=== PATIENT | male | born 1960 | race Caucasian/White ===

== ENCOUNTER 2021-08-29 13:42 | Emergency (ER) | payer OTHER, SELFPAY ==
[2021-08-29] VITALS (10 sets, daily range): BP systolic 125–148; BP diastolic 62–79; PULSE 84–104; RESP 16–23; TEMP 36.2; O2SAT 92–95
--- NOTE | 2021-08-29 13:53 | DI.RAD.S_ITS ---
PROCEDURE: XR CHEST 1V INDICATIONS: suspected sepsis TECHNIQUE: One view of the chest was acquired. COMPARISON: None. FINDINGS: Surgical changes and devices: None. Lungs and pleura: Lungs are clear. No pleural effusions or pneumothorax. Mediastinum: Mediastinal contours appear normal. Heart size is normal. Bones and chest wall: No suspicious bony lesions. Overlying soft tissues appear unremarkable. IMPRESSION: No acute process. Dictated by: Allison Bain M.D. on 08/29/2021 at 14:19 Approved by: Allison Bain M.D. on 08/29/2021 at 14:19
[2021-08-29] MEDS: SODIUM CHLORIDE 0.9% 1,000 ML 1000 ML IV (14:21)
[2021-08-29 14:26] LABS: Add Manual Diff / Slide Review NO; Basophils Absolute Auto 0 /uL (0-100); Basophils Percent Auto 0.3 % (0-2); Eosinophils Absolute Auto 100 /uL (0-450); Hematocrit 43.1 % (41-53); Hemoglobin 14.7 g/dL (13.5-17.5); Lymphocytes Absolute Auto 400 /uL (1100-4500); Lymphocytes Percent Auto 7.7 % (25-40); Mean Corpuscular HGB Conc 34.1 % (30-36); Monocytes Absolute Auto 300 /uL (0-900); Neutrophils Absolute Auto 4800 /uL (1500-7000); Platelet Count 111 X10^3/uL (150-400); Red Blood Cell Count 4.89 X10^6/uL (4.5-5.9); Red Cell Distribution Width 13.7 % (11.6-14.8); White Blood Cell Count 5.6 X10^3/uL (4.5-11.0)
[2021-08-29 14:27] LABS: Alanine Aminotransferase 58 IU/L (<50); Albumin 4.6 g/dL (3.5-5.0); Albumin Globulin Ratio 1.4 (1.0-2.8); Alkaline Phosphatase 35 U/L (38-126); Aspartate Aminotransferase 52 IU/L (17-59); BUN Creatinine Ratio 15.7 (6-22); Bilirubin Total 0.8 mg/dL (0.2-1.3); Blood Urea Nitrogen 16 mg/dL (9-20); Calcium 8.7 mg/dL (8.4-10.2); Carbon Dioxide 22 mmol/L (22-32); Chloride 106 mmol/L (98-107); Estimated Glomerular Filt Rate > 60 mL/min (>60); Globulin 3.4 g/dL (1.7-4.1); Glucose 121 mg/dL (70-100); HEMOLYSIS < 15 (0-50); Lipase 328 U/L (23-300); Potassium 3.6 mmol/L (3.4-5.1); Sodium 140 mmol/L (137-145)
[2021-08-29 14:28] LABS: Lactate (Lactic Acid) 1.4 mmol/L (0.7-2.1)
[2021-08-29 14:44] LABS: Procalcitonin 0.23 ng/mL (<0.5)
--- NOTE | 2021-08-29 15:18 | ED.NAVMDI ---
HPI - Nausea/Vomiting/Diarrhea General Chief complaint: Nausea/Vomiting/Diarrhea Stated complaint: N/V/D, body aches since last night Time Seen by Provider: 08/29/21 14:28 Source: patient Mode of arrival: Ambulatory History of Present Illness HPI Narrative: Patient is a 60-year-old male. Has a history of HIV. His on antiretrovirals for this. He states that his viral load is 0 and his last CD4 count was greater than 500. He is here for evaluation of just under 24 hours of nausea vomiting diarrhea body aches. Patient states he did attend a birthday libertarian last evening and did have food and drinks there however there other people that ate the same things and no one else seems to be ill. He does have some lower abdominal tenderness. Also has a headache. No blood in his stool. No rashes. No chest pain. No shortness of breath Related Data Previous Rx's Medication Instructions Recorded ondansetron 4 mg disintegrating 4 mg PO Q6H PRN #14 tab 08/29/21 tablet Allergies Allergy/AdvReac Type Severity Reaction Status Date / Time No Known Drug Allergies Allergy Verified 08/29/21 13:51 Review of Systems Constitutional Constitutional: Reports as per HPI and Reports system reviewed and no additional complaints, except as documented Cardiovascular Cardiovascular: Reports as per HPI and Reports system reviewed and no additional complaints, except as documented Respiratory Respiratory: Reports as per HPI and Reports system reviewed and no additional complaints, except as documented Gastrointestinal Gastrointestinal: Reports as per HPI and Reports system reviewed and no additional complaints, except as documented Genitourinary Genitourinary: Reports system reviewed and no additional complaints, except as documented and Reports as per HPI Musculoskeletal Musculoskeletal: Reports system reviewed and no additional complaints, except as documented Integumentary/Breasts Skin/Breast: Reports system reviewed and no additional complaints, except as documented Neurologic Neurologic: Reports system reviewed and no additional complaints, except as documented Hematologic/Lymphatic Hematologic/Lymphatic: Reports system reviewed and no additional complaints, except as documented Patient History Medical History HIV (human immunodeficiency virus infection) Social History Smoking Status: Never smoker Smoking Status: Never smoker alcohol intake frequency: 0-2 drinks per day Exam Initial Vital Signs Initial Vital Signs: Vital Signs Temperature 97.2 F L 08/29/21 13:48 Pulse Rate 104 H 08/29/21 13:48 Respiratory Rate 22 08/29/21 13:48 Blood Pressure 148/68 H 08/29/21 13:48 Pulse Oximetry 95 08/29/21 13:48 HENMT Head: normal to inspection and normocephalic Resp Effort & Inspection: normal respiratory effort Auscultation: clear to auscultation bilaterally Cardio Rate: regular rate Rhythm: regular rhythm GI Inspection: normal to inspection Palpation: soft and No tender Skin General: no rashes or lesions noted Neuro General: patient alert, patient awake and moves all extremities Extrem General: normal to inspection and capillary refill normal Psych Appearance: grossly normal and well kempt Course Orders Ordered: ED Orders 08/29/21 13:53 XR chest 1V Stat RT Consult Eval and Treat NOW 08/29/21 14:05 Complete Blood Count AUTO DIFF Stat Comprehensive Metabolic Panel Stat Lactate (Lactic Acid) Stat Lipase Stat Procalcitonin Stat 08/29/21 14:14 COVID19 -Nasal RAPID/Pre-Proc Stat 08/29/21 14:24 Blood Culture Stat 08/29/21 15:22 Ictotest Urine Stat Urine Microscopic Stat Discontinued Medications Sodium Chloride (Normal Saline 0.9%) 1,000 mls @ 1,000 mls/hr IV BOLUS ONE Stop: 08/29/21 14:52 Last Infusion: 08/29/21 15:58 Dose: 0 mls/hr Documented by: Admin: 08/29/21 14:21 Dose: 1,000 mls/hr Documented by: CONOR Vital Signs Vital signs: Vital Signs - 8 hr 08/29/21 13:48 08/29/21 13:56 08/29/21 14:00 Temperature 97.2 F L Pulse Rate 104 H 101 H 97 H Respiratory Rate 22 22 Blood Pressure 148/68 H 148/68 H Pulse Oximetry 95 94 95 08/29/21 14:30 08/29/21 14:31 08/29/21 15:00 Temperature Pulse Rate 96 H 96 H 96 H Respiratory Rate 21 21 23 Blood Pressure 147/66 H 147/65 H 141/79 H Pulse Oximetry 92 92 93 08/29/21 15:30 08/29/21 16:00 08/29/21 16:30 Temperature Pulse Rate 86 85 84 Respiratory Rate 18 Blood Pressure 131/62 125/70 130/77 Pulse Oximetry 92 92 93 08/29/21 17:00 Temperature Pulse Rate 84 Respiratory Rate 16 Blood Pressure 131/65 Pulse Oximetry 93 MDM - Nausea/Vomiting/Diarrhea Lab Data Result diagrams: 08/29/21 14:05 08/29/21 14:05 Labs: Lab Results 08/29/21 08/29/21 08/29/21 Range/Units 14:05 14:05 14:05 WBC 5.6 (4.5-11.0) X10^3/uL RBC 4.89 (4.5-5.9) X10^6/uL Hgb 14.7 (13.5-17.5) g/dL Hct 43.1 (41-53) % MCV 88.0 (80-100) fL MCH 30.0 (26-34) PG MCHC 34.1 (30-36) % RDW 13.7 (11.6-14.8) % Plt Count 111 L (150-400) X10^3/uL Neut % (Auto) 85.0 H (50-75) % Lymph % (Auto) 7.7 L (25-40) % [place] % (Auto) 6.0 (3-14) % Eos % (Auto) 1.0 L (2-4) % Baso % (Auto) 0.3 (0-2) % Neut # (Auto) 4800 (4547-1306) /uL Lymph # (Auto) 400 L (8070-7390) /uL [place] # (Auto) 300 (0-900) /uL Eos # (Auto) 100 (0-450) /uL Baso # (Auto) 0 (0-100) /uL Sodium 140 (137-145) mmol/L Potassium 3.6 (3.4-5.1) mmol/L Chloride 106 (98-107) mmol/L Carbon Dioxide 22 (22-32) mmol/L BUN 16 (9-20) mg/dL Creatinine 1.02 (0.66-1.25) mg/dL Estimated GFR > 60 (>60) mL/min BUN/Creatinine Ratio 15.7 (6-22) Glucose 121 H (70-100) mg/dL Lactate 1.4 (0.7-2.1) mmol/L Calcium 8.7 (8.4-10.2) mg/dL Total Bilirubin 0.8 (0.2-1.3) mg/dL AST 52 (17-59) IU/L ALT 58 H (<50) IU/L Alkaline Phosphatase 35 L (38-126) U/L Total Protein 8.0 (6.3-8.2) g/dL Albumin 4.6 (3.5-5.0) g/dL Globulin 3.4 (1.7-4.1) g/dL Albumin/Globulin Ratio 1.4 (1.0-2.8) Lipase 328 H (23-300) U/L Procalcitonin 0.23 (<0.5) ng/mL Ur Bilirubin Confirm (Negative) Urine RBC (0-5/HPF) Urine WBC (0-5/HPF) Ur Squamous Epith Cells (0-5/HPF) Urine Bacteria (None) Urine Mucus (Negative) Ur Culture Indicated? SARS-CoV-2 (PCR) (Negative) 08/29/21 08/29/21 08/29/21 Range/Units 14:14 15:22 15:22 WBC (4.5-11.0) X10^3/uL RBC (4.5-5.9) X10^6/uL Hgb (13.5-17.5) g/dL Hct (41-53) % MCV (80-100) fL MCH (26-34) PG MCHC (30-36) % RDW (11.6-14.8) % Plt Count (150-400) X10^3/uL Neut % (Auto) (50-75) % Lymph % (Auto) (25-40) % [place] % (Auto) (3-14) % Eos % (Auto) (2-4) % Baso % (Auto) (0-2) % Neut # (Auto) (4714-7648) /uL Lymph # (Auto) (1606-1589) /uL [place] # (Auto) (0-900) /uL Eos # (Auto) (0-450) /uL Baso # (Auto) (0-100) /uL Sodium (137-145) mmol/L Potassium (3.4-5.1) mmol/L Chloride (98-107) mmol/L Carbon Dioxide (22-32) mmol/L BUN (9-20) mg/dL Creatinine (0.66-1.25) mg/dL Estimated GFR (>60) mL/min BUN/Creatinine Ratio (6-22) Glucose (70-100) mg/dL Lactate (0.7-2.1) mmol/L Calcium (8.4-10.2) mg/dL Total Bilirubin (0.2-1.3) mg/dL AST (17-59) IU/L ALT (<50) IU/L Alkaline Phosphatase (38-126) U/L Total Protein (6.3-8.2) g/dL Albumin (3.5-5.0) g/dL Globulin (1.7-4.1) g/dL Albumin/Globulin Ratio (1.0-2.8) Lipase (23-300) U/L Procalcitonin (<0.5) ng/mL Ur Bilirubin Confirm Negative (Negative) Urine RBC None seen (0-5/HPF) Urine WBC 0-1/hpf (0-5/HPF) Ur Squamous Epith Cells 0-1 /hpf (0-5/HPF) Urine Bacteria None seen (None) Urine Mucus 1+ H (Negative) Ur Culture Indicated? Cult not indicated SARS-CoV-2 (PCR) Negative (Negative) Urine Dip Bedside Urine Glucose Negative Bedside Urine Bilirubin ++ 2 Bedside Urine Ketone - Negative Urine Specific [place] 1.015 Bedside Urine Occult Blood - Negative Bedside Urine pH 6.0 Bedside Urine Protein + 30 Bedside Urine Urobilinogen 0.2 Bedside Urine Nitrite - Negative Bedside Urine Leukocytes - Negative Esterase MDM Narrative Medical decision making narrative: Patient feels better after the above-stated therapies. His labs unremarkable. Has a benign exam. Feel that we can hold on any radiologic studies for now given her presentation. No indication for antibiotics. Will send home with nausea medication. He was given return precautions follow-up instructions. He expressed understanding agreement. Discharge Plan Departure Patient Disposition: Home Clinical Impression: Nausea, Vomiting, and Diarrhea Instructions: Nausea and Vomiting-Adult Activity Restrictions/Additional Instructions: Recommend that you increase your fluid intake. Continue any medications as directed. Your symptoms should start to improve over the next couple days. If you develops any new symptoms please return to the emergency department for further evaluation. Prescriptions: New ondansetron 4 mg tablet,disintegrating 4 mg PO Q6H PRN (Reason: nausea and vomiting) Qty: 14 0RF Referrals: Billy Blair MD [Primary Care Provider] -
[2021-08-29 15:50] LABS: Ictotest Urine Negative (Negative)
[2021-08-29 15:57] LABS: COVID19 -Nasal RAPID Negative (Negative)
[2021-08-29 16:01] LABS: RBC Urine None Seen (0-5/HPF); Squamous Epithelial Cell Urine 0-1 /HPF (0-5/HPF); WBC Urine 0-1/HPF (0-5/HPF)
[2021-08-29 16:02] LABS: Bacteria Urine None Seen; Culture Indicated Urine Cult Not Indicated; Mucus Urine 1+ (Negative)
== END 2021-08-29 17:24 | disposition home or self-care (01) ==
PROVIDERS: Emergency Provider Emergency Medicine; PCP Family Medicine
DX: R11.2 Nausea with vomiting, unspecified (principal); R19.7 Diarrhea, unspecified; B20 Human immunodeficiency virus [HIV] disease; Z20.822 Contact with and (suspected) exposure to COVID-19
CPT/HCPCS: 36415; 71045; 80053; 81003; 81015; 83605; 83690; 84145; 85025; 87040; 87635; 99283; 99284; C9803

== ENCOUNTER 2023-08-30 08:04 | Day surgery (SDC) | payer OTHER, SELFPAY ==
--- NOTE | 2023-08-30 08:27 | PM.HP.1 ---
History of Present Illness History of Present Illness Date Patient Seen: 08/30/23 Chief complaint: Dx Colonoscopy Narrative: Five year follow-up colonoscopy for history of polyps [facility] Medical History HIV (human immunodeficiency virus infection) Social History Smoking Status: Never smoker Meds Home Medications and Allergies Home Medications Medication Instructions Recorded Confirmed Type darunavir 600 mg tablet 600 mg PO DAILY 08/30/23 08/30/23 History dolutegravir 50 mg-rilpivirine 25 1 tab PO DAILY 08/30/23 08/30/23 History mg tablet ([place]) famotidine 20 mg tablet 20 mg PO BID 08/30/23 08/30/23 History fenofibrate 160 mg tablet 160 mg PO DAILY 08/30/23 08/30/23 History lisinopril 10 mg tablet 10 mg PO DAILY 08/30/23 08/30/23 History peg 3350 240 gram-electrolytes 240 ml PO DAILY 08/30/23 08/30/23 History 22.72 gram-6.72 g-5.84 g powdr for soln (Gavilyte-C) ritonavir 100 mg tablet 100 mg PO DAILY 08/30/23 08/30/23 History rosuvastatin 20 mg tablet 20 mg PO ONCE PM 08/30/23 08/30/23 History sertraline 100 mg tablet 100 mg PO BID 08/30/23 08/30/23 History Allergies Allergy/AdvReac Type Severity Reaction Status Date / Time No Known Drug Allergies Allergy Verified 08/30/23 08:17 Exam Narrative Exam Narrative: oropharynx free of lesions Chest clear to auscultation percussion Cardiac exam reveals no S3 or murmur Assessment & Plan Assessment & Plan narrative: follow-up screening colonoscopy. Risks, benefits, alternatives have been explained.
--- NOTE | 2023-08-30 08:28 | PM.OP.COLON ---
Operative Date/Time/Diagnoses Date of procedure: 08/30/23 Pre-op diagnosis: see indication and findings Procedure & Clinicians Study performed: Colonoscopy Indications: history of polyps Surgeon: Flip Smiley Procedure Notes Procedure in detail: after informed consent was obtained the patient was placed in left lateral decubitus position. The video colonoscope was introduced the rectum slowly advanced to the cecum. Preparation was good. On slow withdrawal mucosa was carefully examined. The scope was removed. The patient tolerated procedure well. Blood loss none Complications none Sedation mac Findings 1. Normal colonoscopy to cecum 2. Mild internal hemorrhoids Patient should have follow-up colonoscopy in 7 years
[2023-08-30 08:31] VITALS: BP 147/93; PULSE 69; RESP 18; TEMP 36.7; O2SAT 94
[2023-08-30] MEDS: LACTATED RINGERS 1,000 ML 42 ML IV (08:36)
[2023-08-30 09:11] VITALS: BP 96/58; PULSE 68; RESP 12; TEMP 36.4; O2SAT 95
[2023-08-30 09:17] VITALS: BP 100/63; PULSE 78; RESP 15; TEMP 36.4; O2SAT 94
[2023-08-30 09:22] VITALS: BP 107/71; PULSE 68; RESP 12; TEMP 36.4; O2SAT 95
[2023-08-30 09:32] VITALS: BP 118/65; PULSE 69; RESP 15; TEMP 36.4; O2SAT 95
== END 2023-08-30 09:45 | disposition home or self-care (01) ==
PROVIDERS: PCP Family Medicine; Referring Provider Internal Medicine Gastroenterology; Visit Provider Internal Medicine Gastroenterology
PROC: 0DJD8ZZ Inspection of Lower Intestinal Tract, Via Natural or Artificial Opening Endoscopic (ICD-10-PCS; CPT 45378; principal; 2023-08-30 09:00)
DX: Z12.11 Encounter for screening for malignant neoplasm of colon (principal); Z86.010 Personal history of colon polyps; K64.8 Other hemorrhoids
CPT/HCPCS: 45378; J2704